=== PATIENT | female | born 1965 ===

== ENCOUNTER 2017-03-13 15:19 | Observation (INO) | payer MEDICAID ==
[2017-03-13] MEDS ORDERED: Sodium Chloride 0.9% 1,000 ML IV STA (15:42)
--- NOTE | 2017-03-13 15:55 | ED PDOC ---
HPI: Abdomen Time Seen by Provider: 03/13/17 15:28 Chief Complaint (Nursing): Abdominal Pain Chief Complaint (Provider): Abdominal Pain History Per: Patient History/Exam Limitations: no limitations Onset/Duration Of Symptoms: Hrs (this morning, approximately 7x hours prior to arrival) Severity: Moderate Associated Symptoms: Nausea, Vomiting (1x episode), Diarrhea (2x episodes). denies: Fever Additional Complaint(s): 51 year old female with a pertinent medical history of HTN and vertigo presents to the ED with complaints of lower abdominal pain that started this morning, approximately 7x hours prior to arrival. She reports having 1x episode of diarrhea this morning, and a second episode of diarrhea and vomiting later today. She denies having a fever and any other symptoms. PMD: Heladio Edwards MD Past Medical History Reviewed: Historical Data, Nursing Documentation, Vital Signs Vital Signs: Last Vital Signs Temp 98.2 F 03/13/17 15:21 Pulse 58 L 03/13/17 15:21 Resp 16 03/13/17 15:21 BP 153/76 H 03/13/17 15:21 Pulse Ox 99 03/13/17 16:05 - Medical History PMH: HTN Other PMH: vertigo - Family History Family History: States: Unknown Family Hx - Allergies Allergies/Adverse Reactions: Allergies Allergy/AdvReac Type Severity Reaction Status Date / Time No Known Allergies Allergy Verified 03/13/17 15:21 Review of Systems ROS Statement: Except As Marked, All Systems Reviewed And Found Negative Constitutional: Negative for: Fever Gastrointestinal: Positive for: Nausea, Vomiting (1x episode), Abdominal Pain ( suprapubic pain), Diarrhea (2x episodes) Physical Exam - Reviewed Nursing Documentation Reviewed: Yes Vital Signs Reviewed: Yes - Physical Exam Appears: Positive for: Well, Non-toxic, No Acute Distress Head Exam: Positive for: ATRAUMATIC, NORMOCEPHALIC Skin: Positive for: Normal Color, Warm, Dry Cardiovascular/Chest: Positive for: Regular Rate, Rhythm Respiratory: Positive for: Normal Breath Sounds. Negative for: Respiratory Distress Gastrointestinal/Abdominal: Positive for: Tenderness (suprapubic tenderness). Negative for: Guarding, Rebound Extremity: Positive for: Normal ROM Neurologic/Psych: Positive for: Alert, Oriented (3x) - Laboratory Results Result Diagrams: 03/13/17 15:46 03/13/17 16:10 - ECG O2 Sat by Pulse Oximetry: 99 (RA) Pulse Ox Interpretation: Normal Medical Decision Making Medical Decision Makin:28 Initial impression: 51 year old female with abdominal pain. Initial plan: * CT abd and pelvis IV contrast only * CMP * urine * udip * CBC * IV NS 1,000ml IV 100mls/hr * reevaluation Scribe Attestation: Documented by Carie Cheng, acting as a scribe for Jay Quinones MD. Provider Scribe Attestation: All medical record entries made by the Scribe were at my direction and personally dictated by me. I have reviewed the chart and agree that the record accurately reflects my personal performance of the history, physical exam, medical decision making, and the department course for this patient. I have also personally directed, reviewed, and agree with the discharge instructions and disposition. Disposition - Clinical Impression Clinical Impression: Colitis - Patient ED Disposition Is Patient to be Admitted: Yes - Disposition Disposition Time: 18:56 Condition: FAIR - Pt Status Changed To: Hospital Disposition Of: Observation - POA Present On Arrival: None
[2017-03-13 16:22] LABS: BASO # 0.1 K/uL (0.0-0.2); BASO % 0.6 % (0.0-2.0); EOS % 0.1 % (0.0-4.0); HEMATOCRIT 40.8 % (34.0-47.0); LYMPH % 9.6 % (20.0-40.0); MEAN CELL VOLUME 87.3 fl (81.0-99.0); MEAN CORPUSCULAR HEMOGLOBIN 28.8 pg (27.0-31.0); MEAN PLATELET VOLUME 9.5 fl (7.2-11.7); MONO # 0.4 K/uL (0.0-0.8); MONO % 3.4 % (0.0-10.0); NEUT % 86.3 % (50.0-75.0); PLATELET COUNT 282 K/uL (130-400); RED CELL DISTRIBUTION WIDTH 13.2 % (11.5-14.5); WHITE BLOOD COUNT 10.5 K/uL (4.8-10.8)
[2017-03-13 16:34] LABS: ALB/GLOB RATIO 1.5 (1.0-2.1); ALKALINE PHOSPHATASE 113 U/L (38-126); ALT/SGPT 52 U/L (9-52); AST/SGOT 29 U/L (14-36); BILIRUBIN,TOTAL 0.3 mg/dl (0.2-1.3); BLOOD UREA NITROGEN 14 mg/dl (7-17); CALCIUM 9.4 mg/dL (8.4-10.2); CARBON DIOXIDE 24 mmol/L (22-30); CHLORIDE 105 mmol/L (98-107); GFR AFRICAN-AMERICAN > 60; GLUCOSE,RANDOM 175 mg/dL (65-105); POTASSIUM 3.9 MMOL/L (3.6-5.0); SODIUM 144 mmol/l (132-148); TOTAL PROTEIN 7.9 G/DL (6.3-8.2)
[2017-03-13] MEDS ORDERED: Iohexol 300 100 ML IJ ONE (16:51)
[2017-03-13] MEDS ORDERED: Sodium Chloride 0.9% 50 ML IV ONE (16:51)
--- NOTE | 2017-03-13 17:39 | CT ---
PROCEDURE: CT Abdomen and Pelvis with contrast HISTORY: lower abd pain COMPARISON: None. TECHNIQUE: Contrast dose: 90 mL of Omnipaque 300. Technique: Axial and reformatted coronal and sagittal CT images of the abdomen and pelvis were obtained after IV contrast administration. Radiation dose: Total exam DLP = 668.68 mGy-cm. This CT exam was performed using one or more of the following dose reduction techniques: Automated exposure control, adjustment of the mA and/or kV according to patient size, and/or use of iterative reconstruction technique. FINDINGS: LOWER THORAX: Unremarkable. LIVER: Mild hepatomegaly with findings suggestive of mild hepatic steatosis is again noted. GALLBLADDER AND BILE DUCTS: Unremarkable. PANCREAS: Unremarkable. No gross lesion or ductal dilatation. SPLEEN: Unremarkable. ADRENALS: Unremarkable. No mass. KIDNEYS AND URETERS: Again seen are nonobstructing right renal calculi. There is mild dilatation of the collecting system of the right kidney without evidence of obstructing stone in the ureter. No evidence of left hydronephrosis. The kidneys enhance symmetrically. VASCULATURE: Unremarkable. No aortic aneurysm. BOWEL: Diffuse large bowel wall thickening is noted suggestive of pancolitis. No evidence of small bowel obstruction. APPENDIX: No evidence of appendicitis. PERITONEUM: Unremarkable. No free fluid. No free air. LYMPH NODES: Unremarkable. No enlarged lymph nodes. BLADDER: Unremarkable. REPRODUCTIVE: Unremarkable. BONES: No acute fracture. OTHER FINDINGS: None. IMPRESSION: Diffuse large bowel wall thickening suggestive of pancolitis. Correlate clinically for C diff colitis. Re- demonstration of nonobstructing right renal calculi. Mildly dilated right kidney collecting system without evidence of obstructing stone.
[2017-03-13 18:34] LABS: NEUTROPHIL 87 % (42-75); TOTAL CELLS COUNTED 100
[2017-03-13 18:35] LABS: LARGE PLATELETS PRESENT
[2017-03-13] MEDS ORDERED: metroNIDAZOLE 500mg/100ml NS 100 ML IVPB STA (18:55)
[2017-03-13] MEDS ORDERED: metroNIDAZOLE 500mg/100ml NS 100 ML IVPB ONE (20:04)
[2017-03-14] MEDS: Dextrose 5%/Lactated Ringer's 1,000 ML IV SCH ×2 (00:57→11:52)
[2017-03-14] MEDS ORDERED: Vancomycin 500 mg (Oral/Rectal USE) PO SCH (04:00)
[2017-03-14 07:35] LABS: HEMATOCRIT 37.2 % (34.0-47.0); MEAN CELL VOLUME 86.9 fl (81.0-99.0); MEAN CORPUSCULAR HEMOGLOBIN 29.1 pg (27.0-31.0); MEAN CORPUSCULAR HGB CONC 33.5 g/dL (33.0-37.0); RED CELL DISTRIBUTION WIDTH 13.1 % (11.5-14.5); WHITE BLOOD COUNT 6.7 K/uL (4.8-10.8)
[2017-03-14 07:45] LABS: ALB/GLOB RATIO 1.4 (1.0-2.1); ALKALINE PHOSPHATASE 86 U/L (38-126); ALT/SGPT 36 U/L (9-52); AST/SGOT 24 U/L (14-36); BILIRUBIN,TOTAL 0.4 mg/dl (0.2-1.3); BLOOD UREA NITROGEN 8 mg/dl (7-17); CALCIUM 8.7 mg/dL (8.4-10.2); CARBON DIOXIDE 25 mmol/L (22-30); CHLORIDE 110 mmol/L (98-107); GFR AFRICAN-AMERICAN > 60; GLUCOSE,RANDOM 107 mg/dL (65-105); POTASSIUM 3.6 MMOL/L (3.6-5.0); SODIUM 143 mmol/l (132-148); TOTAL PROTEIN 6.4 G/DL (6.3-8.2)
[2017-03-14 08:21] VITALS: RESP 20; O2SAT 98
[2017-03-14] MEDS ORDERED: metroNIDAZOLE 500mg/100ml NS 100 ML IVPB SCH (09:15)
[2017-03-14] MEDS ORDERED: Ciprofloxacin 400mg/200ml D5W 400 MG/200 ML BAG IVPB SCH (09:15)
[2017-03-14] MEDS ORDERED: HCTZ/Losartan 12.5/50 Tab PO SCH (09:30)
--- NOTE | 2017-03-14 09:32 | CP.PCM.CON ---
History of Present Illness - History of Present Illness History of Present Illness: 51 yo female admitted with abdominal pain and multiple bouts of diarrhea yesterday. Feeling better today. Has hypertension and vertigo but otherwise well. No recent antibiotics. On Friday attended daughter's graduation at [facility] and ate chicken fingers Review of Systems - EENT Eyes: absent: Blurred Vision Ears: absent: Decreased Hearing Nose/Mouth/Throat: absent: Epistaxis - Cardiovascular Cardiovascular: absent: Chest Pain - Respiratory Respiratory: absent: Dyspnea - Gastrointestinal Gastrointestinal: As Per HPI - Genitourinary Genitourinary: absent: Change in Urinary Stream Past Patient History - Past Medical History & Family History Past Medical History?: Yes - Past Social History Smoking Status: Never Smoked - CARDIAC Hx Cardiac Disorders: Yes Hx Hypertension: Yes - PULMONARY Hx Respiratory Disorders: No - NEUROLOGICAL Hx Neurological Disorder: No - HEENT Hx HEENT Problems: Yes Other/Comment: uses eye glasses, uses hearing aids to both ears - RENAL Hx Chronic Kidney Disease: No - ENDOCRINE/METABOLIC Hx Endocrine Disorders: No - HEMATOLOGICAL/ONCOLOGICAL Hx Blood Disorders: No - INTEGUMENTARY Hx Dermatological Problems: No - MUSCULOSKELETAL/RHEUMATOLOGICAL Hx Musculoskeletal Disorders: No Hx Falls: No - GASTROINTESTINAL Hx Gastrointestinal Disorders: Yes Hx Diarrhea: Yes Other/Comment: for r/o C.diff - GENITOURINARY/GYNECOLOGICAL Hx Genitourinary Disorders: No - PSYCHIATRIC Hx Psychophysiologic Disorder: No Hx Substance Use: No - SURGICAL HISTORY Hx Surgeries: Yes Hx Appendectomy: Yes Hx Herniorrhaphy: Yes Hx Hysterectomy: Yes Hx Tonsillectomy: Yes - ANESTHESIA Hx Anesthesia: Yes Hx Anesthesia Reactions: No Hx Malignant Hyperthermia: No Meds Allergies/Adverse Reactions: Allergies Allergy/AdvReac Type Severity Reaction Status Date / Time No Known Allergies Allergy Verified 03/13/17 15:21 - Medications Medications: Current Medications Dextrose/Lactated Ringer's (Dextrose 5%/Lactated Ringer's) 1,000 mls @ 100 mls/ hr IV .Q10H HAN Last Admin: 03/14/17 00:57 Dose: 100 mls/hr Ciprofloxacin (Cipro 400mg/200ml Dsw) 400 mg in 200 mls @ 200 mls/hr IVPB Q12 HAN Metronidazole (Flagyl 500mg/100ml Ns) 100 mls @ 100 mls/hr IVPB Q8 HAN Pantoprazole Sodium (Protonix Inj) 40 mg IVP DAILY HAN Last Admin: 03/14/17 09:10 Dose: 40 mg Physical Exam - Head Exam Head Exam: ATRAUMATIC - Eye Exam Eye Exam: Normal appearance Pupil Exam: NORMAL ACCOMODATION - ENT Exam ENT Exam: Mucous Membranes Moist - Neck Exam Neck exam: Positive for: Normal Inspection - Cardiovascular Exam Cardiovascular Exam: REGULAR RHYTHM - GI/Abdominal Exam GI & Abdominal Exam: Normal Bowel Sounds Results - Vital Signs Recent Vital Signs: Last Vital Signs Temp 98.4 F 03/14/17 08:20 Pulse 52 L 03/14/17 08:20 Resp 20 03/14/17 08:20 BP 137/82 03/14/17 08:20 Pulse Ox 98 03/14/17 08:20 - Labs Result Diagrams: 03/14/17 06:35 03/14/17 06:35 Labs: Laboratory Results - last 24 hr 03/14/17 03/14/17 06:35 06:35 WBC 6.7 RBC 4.27 Hgb 12.4 Hct 37.2 MCV 86.9 MCH 29.1 MCHC 33.5 RDW 13.1 Plt Count 252 Sodium 143 Potassium 3.6 Chloride 110 H Carbon Dioxide 25 Anion Gap 12 BUN 8 Creatinine 0.9 Est GFR ( Amer) > 60 Est GFR (Non-Af Amer) > 60 Random Glucose 107 H Calcium 8.7 Total Bilirubin 0.4 AST 24 ALT 36 Alkaline Phosphatase 86 Total Protein 6.4 Albumin 3.7 Globulin 2.7 Albumin/Globulin Ratio 1.4 Assessment & Plan (1) Colitis Assessment and Plan: Presentation more c/wnon C. Diff infectious gastroenteritis.. Treat with Cipro and flagyl. May advance diet and if clinically well may be discharged with additional 5 days of po antibiotics. Status: Acute
--- NOTE | 2017-03-14 15:04 | CP.PCM.HP ---
History of Present Illness - History of Present Illness History of Present Illness: 51yo F with PMHx HTN admitted for colitis. c/o n/v and diarrhea which have all resolved. no diarrhea today. symptoms started after eating outside food. PMHx: as above SHx: NC FHx: NC Social: denies x3 Allergies: NKDA Present on Admission - Present on Admission Any Indicators Present on Admission: No Review of Systems - Review of Systems All systems: reviewed and no additional remarkable complaints except (nausea, vomiting, diarrhea) Past Patient History - Past Medical History & Family History Past Medical History?: Yes - Past Social History Smoking Status: Never Smoked - CARDIAC Hx Cardiac Disorders: Yes Hx Hypertension: Yes - PULMONARY Hx Respiratory Disorders: No - NEUROLOGICAL Hx Neurological Disorder: No - HEENT Hx HEENT Problems: Yes Other/Comment: uses eye glasses, uses hearing aids to both ears - RENAL Hx Chronic Kidney Disease: No - ENDOCRINE/METABOLIC Hx Endocrine Disorders: No - HEMATOLOGICAL/ONCOLOGICAL Hx Blood Disorders: No - INTEGUMENTARY Hx Dermatological Problems: No - MUSCULOSKELETAL/RHEUMATOLOGICAL Hx Musculoskeletal Disorders: No Hx Falls: No - GASTROINTESTINAL Hx Gastrointestinal Disorders: Yes Hx Diarrhea: Yes Other/Comment: for r/o C.diff - GENITOURINARY/GYNECOLOGICAL Hx Genitourinary Disorders: No - PSYCHIATRIC Hx Psychophysiologic Disorder: No Hx Substance Use: No - SURGICAL HISTORY Hx Surgeries: Yes Hx Appendectomy: Yes Hx Herniorrhaphy: Yes Hx Hysterectomy: Yes Hx Tonsillectomy: Yes - ANESTHESIA Hx Anesthesia: Yes Hx Anesthesia Reactions: No Hx Malignant Hyperthermia: No Meds Home Medications: Home Medication List Medication Instructions Recorded Confirmed Type Ciprofloxacin HCl [Cipro] 500 mg PO BID #10 tablet 03/14/17 Rx Metronidazole [Flagyl] 500 mg PO TID #15 tablet 03/14/17 Rx Allergies/Adverse Reactions: Allergies Allergy/AdvReac Type Severity Reaction Status Date / Time No Known Allergies Allergy Verified 03/13/17 15:21 Physical Exam - Constitutional Appears: Non-toxic, No Acute Distress - Head Exam Head Exam: NORMAL INSPECTION - Eye Exam Eye Exam: Normal appearance - ENT Exam ENT Exam: Mucous Membranes Moist - Neck Exam Neck exam: Positive for: Normal Inspection - Respiratory Exam Respiratory Exam: Clear to Auscultation Bilateral - Cardiovascular Exam Cardiovascular Exam: REGULAR RHYTHM - GI/Abdominal Exam GI & Abdominal Exam: Soft. absent: Tenderness - Extremities Exam Extremities exam: Positive for: normal inspection - Back Exam Back exam: NORMAL INSPECTION - Neurological Exam Neurological exam: Alert, Oriented x3 - Skin Skin Exam: Dry, Warm Results - Vital Signs Recent Vital Signs: Last Vital Signs Temp 98.4 F 03/14/17 08:20 Pulse 52 L 03/14/17 08:20 Resp 20 03/14/17 08:20 BP 137/82 03/14/17 08:20 Pulse Ox 98 03/14/17 08:20 - Labs Result Diagrams: 03/14/17 06:35 03/14/17 06:35 Labs: Laboratory Results - last 24 hr 03/14/17 03/14/17 06:35 06:35 WBC 6.7 RBC 4.27 Hgb 12.4 Hct 37.2 MCV 86.9 MCH 29.1 MCHC 33.5 RDW 13.1 Plt Count 252 Sodium 143 Potassium 3.6 Chloride 110 H Carbon Dioxide 25 Anion Gap 12 BUN 8 Creatinine 0.9 Est GFR ( Amer) > 60 Est GFR (Non-Af Amer) > 60 Random Glucose 107 H Calcium 8.7 Total Bilirubin 0.4 AST 24 ALT 36 Alkaline Phosphatase 86 Total Protein 6.4 Albumin 3.7 Globulin 2.7 Albumin/Globulin Ratio 1.4 Assessment & Plan - Assessment and Plan (Free Text) Assessment: 51yo F with PMHx admitted for colitis. colitis -CT abd/pelvis: colitis, possible c diff -advance diet as tolerated -IVF -iv abx -GI on board Dispo: d/c home if tolerating PO DVT ppx: SCDs Decision To Admit - Pt Status Changed To: Hospital Disposition Of: Observation - . Bed Request Type: Med/Surg Admitting Physician: Wale Valdez
--- NOTE | 2017-03-14 15:09 | CP.PCM.DIS ---
Provider - Provider Date of Admission: 03/13/17 18:54 Attending physician: Wale Valdez MD Time Spent in preparation of Discharge (in minutes): 20 Diagnosis - Discharge Diagnosis (1) Gastroenteritis Status: Acute (2) Colitis Status: Acute Hospital Course - Lab Results Lab Results: Most Recent Lab Values WBC 6.7 K/uL (4.8-10.8) 03/14/17 06:35 RBC 4.27 Mil/uL (3.80-5.20) 03/14/17 06:35 Hgb 12.4 g/dL (12.0-16.0) 03/14/17 06:35 Hct 37.2 % (34.0-47.0) 03/14/17 06:35 MCV 86.9 fl (81.0-99.0) 03/14/17 06:35 MCH 29.1 pg (27.0-31.0) 03/14/17 06:35 MCHC 33.5 g/dL (33.0-37.0) 03/14/17 06:35 RDW 13.1 % (11.5-14.5) 03/14/17 06:35 Plt Count 252 K/uL (130-400) 03/14/17 06:35 MPV 9.5 fl (7.2-11.7) 03/13/17 15:46 Neut % (Auto) 86.3 % (50.0-75.0) H 03/13/17 15:46 Lymph % (Auto) 9.6 % (20.0-40.0) L 03/13/17 15:46 Bond % (Auto) 3.4 % (0.0-10.0) 03/13/17 15:46 Eos % (Auto) 0.1 % (0.0-4.0) 03/13/17 15:46 Baso % (Auto) 0.6 % (0.0-2.0) 03/13/17 15:46 Neut # 9.0 K/uL (1.8-7.0) H 03/13/17 15:46 Lymph # 1.0 K/uL (1.0-4.3) 03/13/17 15:46 Bond # 0.4 K/uL (0.0-0.8) 03/13/17 15:46 Eos # 0.0 K/uL (0.0-0.7) 03/13/17 15:46 Baso # 0.1 K/uL (0.0-0.2) 03/13/17 15:46 Neutrophils % (Manual) 87 % (42-75) H 03/13/17 15:46 Band Neutrophils % 1 % (0-2) 03/13/17 15:46 Lymphocytes % (Manual) 9 % (20-50) L 03/13/17 15:46 Monocytes % (Manual) 3 % (0-10) 03/13/17 15:46 Platelet Estimate Normal (NORMAL) 03/13/17 15:46 Large Platelets Present 03/13/17 15:46 Hypochromasia (manual) Slight 03/13/17 15:46 Sodium 143 mmol/l (132-148) 03/14/17 06:35 Potassium 3.6 MMOL/L (3.6-5.0) 03/14/17 06:35 Chloride 110 mmol/L (98-107) H 03/14/17 06:35 Carbon Dioxide 25 mmol/L (22-30) 03/14/17 06:35 Anion Gap 12 (10-20) 03/14/17 06:35 BUN 8 mg/dl (7-17) 03/14/17 06:35 Creatinine 0.9 mg/dL (0.7-1.2) 03/14/17 06:35 Est GFR ( Amer) > 60 03/14/17 06:35 Est GFR (Non-Af Amer) > 60 03/14/17 06:35 Random Glucose 107 mg/dL (65-105) H 03/14/17 06:35 Calcium 8.7 mg/dL (8.4-10.2) 03/14/17 06:35 Total Bilirubin 0.4 mg/dl (0.2-1.3) 03/14/17 06:35 AST 24 U/L (14-36) 03/14/17 06:35 ALT 36 U/L (9-52) 03/14/17 06:35 Alkaline Phosphatase 86 U/L (38-126) 03/14/17 06:35 Total Protein 6.4 G/DL (6.3-8.2) 03/14/17 06:35 Albumin 3.7 g/dL (3.5-5.0) 03/14/17 06:35 Globulin 2.7 gm/dL (2.2-3.9) 03/14/17 06:35 Albumin/Globulin Ratio 1.4 (1.0-2.1) 03/14/17 06:35 - Hospital Course Hospital Course: 51yo F with PMHx HTN admitted for colitis. N/V and diarrhea resolved at time of d/c with advancement of diet, iv cipro/flagyl converted to PO as outpatient, and follow up with PCP. CT abd/pelvis showed colitis. GI Dr. Gibbons c/s with agreement of plan Discharge Exam - Head Exam Head Exam: NORMAL INSPECTION Discharge Plan - Discharge Medications Prescriptions: Ciprofloxacin HCl [Cipro] 500 mg PO BID #10 tablet Metronidazole [Flagyl] 500 mg PO TID #15 tablet - Follow Up Plan Condition: FAIR Disposition: HOME/ ROUTINE Referrals: Heladio Edwards MD [Family Provider] -
[2017-03-14 16:11] VITALS: BP 137/89; PULSE 74; TEMP 98.6
== END 2017-03-14 18:11 | disposition home or self-care (01) ==
LOC: H.ER 15:19 → H.ERHOLD 18:54 → H.MEDSURG1 21:06
PROVIDERS: ADMIT Family Medicine; ATTEND Family Medicine
DX: K52.9 Noninfective gastroenteritis and colitis, unspecified (principal); I10 Essential (primary) hypertension; R42 Dizziness and giddiness